=== PATIENT | male | born 2000 ===

== ENCOUNTER → 2020-04-06 | Outpatient (CLI) | payer OTHER, MEDICAID | LOC: ZCOL.LAB 18:16 | DX: Z20.828 Contact with and (suspected) exposure to other viral communicable diseases (principal) ==

== ENCOUNTER → 2020-04-21 | Outpatient (CLI) | payer OTHER, MEDICAID | LOC: ZCOL.LAB 02:50 | DX: Z20.828 Contact with and (suspected) exposure to other viral communicable diseases (principal) ==